=== PATIENT | female | born 1975 | race Caucasian/White ===

== ENCOUNTER → 2017-12-20 | Outpatient (CLI) | payer MEDICAID ==
[~2017-12-20] VITALS: Ht 168.9 cm; Wt 146.3 kg
[~2017-12-20] MED LIST: FLINTSTONES W/I1 CTB PO; GLUCOPHAGE500 MG/TAB PO; LASIX 20MG TABL20 MG PO; MOTRIN 600600 MG/TAB PO; PERCOCET 325 MG1 TA2 PO; TUMS500 MG
[2017-12-20 12:06] VITALS: BP 104/80; PULSE 79
== END ==
LOC: LIGHT 11-03 13:47
DX: M54.5 Low back pain (principal); M15.9 Polyosteoarthritis, unspecified; E66.01 Morbid (severe) obesity due to excess calories; Z71.3 Dietary counseling and surveillance; Z68.43 Body mass index [BMI] 50.0-59.9, adult
CPT/HCPCS: G0463

== ENCOUNTER 2019-06-03 06:00 | Emergency (ER) | payer MEDICAID ==
[~2019-06-03] VITALS: Ht 152.4 cm; Wt 140.9 kg
[2019-06-03 06:02] VITALS: TEMP 97.6
[2019-06-03 06:51] LABS: COLLECTION METHOD CLEAN CATCH
[2019-06-03 06:56] LABS: MUCOUS Present /lpf; PH 5 (5-8); URINE APPEARANCE Clear; URINE BACTERIA Rare /hpf; URINE BILIRUBIN Negative (NEGATIVE); URINE BLOOD Negative (NEGATIVE); URINE COLOR Yellow; URINE GLUCOSE Negative (NEGATIVE); URINE KETONE Negative (NEGATIVE); URINE LEUKOCYTE ESTERASE Negative (NEGATIVE); URINE NITRATE Negative (NEGATIVE); URINE PROTEIN(semi-quant) Negative (NEGATIVE); URINE RBC 0-2 /hpf
[2019-06-03 07:49] LABS: BASO % 0.5 % (0.0-2.0); EOS # 0.1 (0.0-0.7); EOS % 1.3 % (0-4.0); GRAN # 5.6 (1.4-6.5); GRAN % 63.7 % (42.2-75.2); HEMATOCRIT 39.8 % (37.0-47.0); HEMOGLOBIN 12.5 g/dl (12.5-16.0); LYMPH # 2.3 (1.2-3.4); LYMPH % 25.9 % (20.0-51.0); MEAN CELL VOLUME 89 fl (80.0-100.0); MEAN CORPUSCULAR HEMOGLOBIN 28 pg (27.0-31.0); MEAN CORPUSCULAR HGB CONC 31 g/dl (33.0-37.0); MEAN PLATELET VOLUME 9.8 fl (7.4-10.4); MONO # 0.7 (0.1-0.6); MONO % 8.4 % (1.7-9.3); PLATELET COUNT 261 K/mm3 (130-400); RED BLOOD COUNT 4.47 M/mm3 (4.10-5.30); REDCELL DISTRIBUTION WIDTH-CV 13.8 % (11.5-14.5)
[2019-06-03 07:56] LABS: ALBUMIN 4.3 gm/dL (3.5-5.0); BILIRUBIN,TOTAL 0.5 mg/dL (0.0-1.0); CALCIUM 9.3 mg/dL (8.4-10.2); CREATININE, serum 0.68 (0.52-1.25); TOTAL PROTEIN 7.9 gm/dL (6.4-8.2)
[2019-06-03] MEDS ORDERED: NORCO 325 MG-51 TAB PO (09:07)
[2019-06-03] MEDS ORDERED: NAPROXEN 3375 MG/TAB PO (09:07)
[2019-06-03 09:30] VITALS: BP 118/81; PULSE 80
== END 2019-06-03 09:30 | disposition home or self-care (01) ==
LOC: COL.ER 06:00
PROVIDERS: Emergency Medicine
DX: K43.6 Other and unspecified ventral hernia with obstruction, without gangrene (principal)
CPT/HCPCS: J1885; J3010; J7030; Q9967

== ENCOUNTER 2020-12-09 15:30 | Emergency (ER) | payer MEDICAID ==
[~2020-12-09] VITALS: Ht 167.6 cm; Wt 140.9 kg
[~2020-12-09 15:30] MED LIST changes: +NAPROXEN 3375 MG/TAB PO; +NORCO 325 MG-51 TAB PO
[2020-12-09 18:03] LABS: ALANINE AMINOTRANSFERASE 130 U/L (4-34); ALBUMIN 4.4 gm/dL (3.5-5.0); ALKALINE PHOSPHATASE 74 U/L (50-136); ANION GAP 7 mmol/L (7-16); AST,SGOT 200 U/L (15-37); BASO % 0.3 % (0.0-2.0); BILIRUBIN,TOTAL 0.9 mg/dL (0.0-1.0); BLOOD UREA NITROGEN 14 mg/dL (7-17); CALCIUM 9.2 mg/dL (8.4-10.2); CARBON DIOXIDE 30 mmol/L (22-30); CHLORIDE 98 mmol/L (98-107); CREATININE, serum 0.67 (0.52-1.25); GLUCOSE 97 mg/dL (74-106); GRAN # 4.5 (1.4-6.5); GRAN % 69.5 % (42.2-75.2); HEMATOCRIT 44.9 % (37.0-47.0); HEMOGLOBIN 14.3 g/dl (12.5-16.0); LYMPH # 1.3 (1.2-3.4); MEAN CELL VOLUME 87 fl (80.0-100.0); MEAN CORPUSCULAR HEMOGLOBIN 28 pg (27.0-31.0); MEAN CORPUSCULAR HGB CONC 32 g/dl (33.0-37.0); MEAN PLATELET VOLUME 11.3 fl (7.4-10.4); MONO # 0.6 (0.1-0.6); MONO % 9.6 % (1.7-9.3); PLATELET COUNT 183 K/mm3 (130-400); POTASSIUM 3.7 mmol/L (3.4-5.0); RED BLOOD COUNT 5.18 M/mm3 (4.10-5.30); REDCELL DISTRIBUTION WIDTH-CV 13.9 % (11.5-14.5); SODIUM 135 mmol/L (137-145); TOTAL PROTEIN 8.6 gm/dL (6.4-8.2)
[2020-12-09 18:15] LABS: TROPONIN-I < 0.012 ng/mL (0.000-0.035)
[2020-12-09] MEDS ORDERED: DOXYCYCLINE HY100 MG PO (20:53)
[2020-12-09] MEDS ORDERED: DECADRON6 MG PO (20:53)
[2020-12-09 21:58] VITALS: BP 137/29; PULSE 69; TEMP 99.3
== END 2020-12-09 21:58 | disposition home or self-care (01) ==
LOC: COL.ER 15:30
PROVIDERS: Physician Assistant
DX: U07.1 COVID-19 (principal); J12.82 Pneumonia due to coronavirus disease 2019; E66.01 Morbid (severe) obesity due to excess calories; Z68.43 Body mass index [BMI] 50.0-59.9, adult
CPT/HCPCS: J7030; J8540; Q9967

== ENCOUNTER 2020-12-23 22:26 | Observation (INO) | payer MEDICAID ==
[~2020-12-23] VITALS: Ht 167.6 cm; Wt 136.4 kg
[~2020-12-23 22:26] MED LIST changes: +DECADRON6 MG PO; +DOXYCYCLINE HY100 MG PO
[2020-12-23 23:38] LABS: BASO % 0.5 % (0.0-2.0); EOS % 0.5 % (0-4.0); GRAN # 6.1 (1.4-6.5); HEMOGLOBIN 13.2 g/dl (12.5-16.0); LYMPH # 1.3 (1.2-3.4); LYMPH % 15.9 % (20.0-51.0); MEAN CELL VOLUME 90 fl (80.0-100.0); MEAN CORPUSCULAR HEMOGLOBIN 28 pg (27.0-31.0); MEAN CORPUSCULAR HGB CONC 31 g/dl (33.0-37.0); MEAN PLATELET VOLUME 10.1 fl (7.4-10.4); MONO # 0.7 (0.1-0.6); MONO % 8.9 % (1.7-9.3); PLATELET COUNT 225 K/mm3 (130-400); RED BLOOD COUNT 4.66 M/mm3 (4.10-5.30); REDCELL DISTRIBUTION WIDTH-CV 14.4 % (11.5-14.5)
[2020-12-24 00:13] LABS: ALBUMIN 3.8 gm/dL (3.5-5.0); BILIRUBIN,TOTAL 0.5 mg/dL (0.0-1.0); CALCIUM 9.1 mg/dL (8.4-10.2); CREATININE, serum 0.62 (0.52-1.25); POTASSIUM 3.7 mmol/L (3.4-5.0); TOTAL PROTEIN 7.3 gm/dL (6.4-8.2)
[2020-12-24 00:59] LABS: COLLECTION METHOD CLEAN CATCH
[2020-12-24 01:05] LABS: MUCOUS Present /lpf; PH 7 (5-8); URINE APPEARANCE Cloudy; URINE BACTERIA Rare /hpf; URINE BILIRUBIN Negative (NEGATIVE); URINE BLOOD Negative (NEGATIVE); URINE COLOR Yellow; URINE GLUCOSE Negative (NEGATIVE); URINE KETONE Negative (NEGATIVE); URINE LEUKOCYTE ESTERASE Negative (NEGATIVE); URINE NITRATE Negative (NEGATIVE); URINE PROTEIN(semi-quant) Negative (NEGATIVE); URINE RBC 0-2 /hpf
--- NOTE | 2020-12-24 11:00 | NUR ---
Patient to room 347 by cart from the ED. Patient A&Ox4. VSS 2L O2 NC . IV CDI. Reporting pain in let flank. Patient independent in the room. No further needs expressed from the patient. Nurse oriented the patient to location, call light and room. Call light within reach. Nurse informed the patient that urine will be strained. Patient verbalized an understanding
--- NOTE | 2020-12-24 17:39 | NUR ---
Patient sitting up on the edge of bed, denies pain and discomfort. VSS. IV CDI, fluids infusing. No further needs expressed. Straining urine, sediment noted. Call light within reach
[2020-12-24 20:17] VITALS: BP 96/53; PULSE 82; TEMP 98.2
--- NOTE | 2020-12-24 21:56 | NUR ---
Pt has been fine. pain rated 3/10. Tylenol PRn was given. Family called for update. Will continue to monitor.
[2020-12-24 23:26] VITALS: BP 98/55; PULSE 80; TEMP 97.9
[2020-12-24 23:33] VITALS: BP 141/81; PULSE 65; TEMP 98.7
[2020-12-25 03:30] VITALS: BP 102/62; PULSE 79; TEMP 98.2
[2020-12-25 07:26] LABS: BASO % 0.3 % (0.0-2.0); EOS # 0.1 (0.0-0.7); EOS % 1.7 % (0-4.0); GRAN # 3.9 (1.4-6.5); GRAN % 66.9 % (42.2-75.2); LYMPH # 1.1 (1.2-3.4); LYMPH % 18.8 % (20.0-51.0); MEAN CELL VOLUME 93 fl (80.0-100.0); MEAN CORPUSCULAR HGB CONC 31 g/dl (33.0-37.0); MEAN PLATELET VOLUME 10.5 fl (7.4-10.4); MONO # 0.7 (0.1-0.6); PLATELET COUNT 159 K/mm3 (130-400); RED BLOOD COUNT 3.94 M/mm3 (4.10-5.30); REDCELL DISTRIBUTION WIDTH-CV 14.8 % (11.5-14.5)
[2020-12-25 07:28] LABS: HEMATOCRIT 36.5 % (37.0-47.0); HEMOGLOBIN 11.2 g/dl (12.5-16.0); MEAN CORPUSCULAR HEMOGLOBIN 28 pg (27.0-31.0)
[2020-12-25 07:32] LABS: CALCIUM 8.2 mg/dL (8.4-10.2); POTASSIUM 4.1 mmol/L (3.4-5.0)
--- NOTE | 2020-12-25 08:00 | NUR ---
Patient sitting up in bed crying and moaning and stating that she was in pain. Rating pain in left side flank 10/10. Pain medication given as requested. A&Ox4. VSS. IV CDI, fluids infusing. Straining urine. No further needs expressed. Call light within reach
[2020-12-25 08:15] VITALS: BP 102/62; PULSE 82; TEMP 98.2
--- NOTE | 2020-12-25 10:06 | NUR ---
munitions worker met with patient to discuss discharge plan. Patient lives in [place] with her life partner (Saran [phone]) and small children. Patient reports she is fully independnt at home and uses not medical devices for assistance getting around. Patient's PCP was Dr. Huerta, however since he is leaving the clinic she hasn't picked a new physician yet. Patient uses [facility] for perscriptions and reports no issue affording medications. Patient does not have a DPOA-HC established but she has form at home. munitions worker educated patient that since her and Saran are not legally the DPOA-HC falls to her next of kin which is her oldest son who is 21. PAtient plans to discharge home. *Discharge plan: Home with family*
[2020-12-25 11:54] VITALS: BP 92/52; PULSE 81; TEMP 98.1
--- NOTE | 2020-12-25 13:13 | NUR ---
Initial visit; Patient thanked Airport Control Operator for looking in on her and offering God's blessings.
[2020-12-25] MEDS ORDERED: XARELTO STARTER20 MG PO (14:03)
--- NOTE | 2020-12-25 14:32 | NUR ---
Discharge paperwork reviewed with the patient. Patient verbalized an understanding to follow doctors orders. Iv removed, tip intact. Gauze and a bandaid applied. Personal belongings and discharge paperwork reviewed with the patient. Patient ambulated independently to ER entrance to waiting vehicle. No further needs expressed
== END 2020-12-25 14:35 | disposition home or self-care (01) ==
LOC: COL.ER 22:26 → SURG 12-24 03:51
PROVIDERS: Nurse Practitioner; ADMIT Internal Medicine
DX: I26.99 Other pulmonary embolism without acute cor pulmonale (principal); N20.0 Calculus of kidney; E66.01 Morbid (severe) obesity due to excess calories; Z90.49 Acquired absence of other specified parts of digestive tract; Z86.16 Personal history of COVID-19
CPT/HCPCS: G0378; J1170; J1885; J2270; J2405; J7030; J7120; Q9967